=== PATIENT | male | born 1965 | race Caucasian/White ===

== ENCOUNTER 2021-04-06 01:42 | Day surgery (SDC) | payer BC, SELFPAY ==
[2021-03-20 14:37] VITALS: BMI 23.7
[2021-04-06 08:30] VITALS: BP 119/84; PULSE 70; RESP 16; TEMP 36.4; O2SAT 99
[2021-04-06] MEDS: LACTATED RINGERS 1,000 ML 150 ML IV CONT (08:41)
--- NOTE | 2021-04-06 09:36 | P.PNAN_ITS ---
Anes - Initial Pre Proc Eval Procedure: Operation Date: 04/06/21 10:00 Proposed Procedures p Screening Colonoscopy - Raman Solano MD Date/Time: 04/06/21 09:36 Surgeon: Raman Solano MD Pre Op Diagnosis: neoplasm screening Patient Data Age: 55 Gender: M Height: 1.78 m Weight: 75 kg Last Vital Signs Temp 97.5 F L 04/06/21 08:30 Pulse 70 04/06/21 08:30 Resp 16 04/06/21 08:30 BP 119/84 04/06/21 08:30 Pulse Ox 99 04/06/21 08:30 Allergies Allergy/AdvReac Type Severity Reaction Status Date / Time No Known Allergies Allergy Verified 03/20/21 14:35 Home Medications Medication Instructions Recorded Confirmed Type testosterone 50 mg/5 gram (1 %) 50 mg TRANSDERM DAILY #150 g 01/22/21 03/20/21 Rx transdermal gel Patient hx anesthesia problems: none Family hx anesthesia problems: none Results Review: All pre-operative results and documents have been reviewed as part of the pre-operative evaluation. [facility] Past Medical History Medical History (Updated 01/22/21 @ 11:29 by Tigre Jim MD) Chronic back pain Low testosterone Screen for colon cancer Screening for lipid disorders Screening for prostate cancer Family History Family History Mother Hypertension Family history of elevated blood lipids Cerebrovascular accident Social History Social History Smoking status: Never smoker Alcohol intake: current Alcohol use details: rare alcohol use maybe once monthly Substance use: never Substance use type: does not use Living arrangements: with family Spiritual care concerns: No Anes - Eval Final PreProcedure Day of Procedure 04/06/21 09:36 Patient weight: normal Heart: regular rate and rhythm Lungs: clear to auscultation Airway: Mallampati scale class II Neurological: alert and oriented Last oral intake: >/= 8 hours ASA classification: I Emergent: no Anesthetic plan: proceed Anesthesia type and monitoring: general GIVS and standard monitoring Results Review: All pre-operative results and documents have been reviewed as part of the pre-operative evaluation. Informed Consent: The patient's anesthetic plan and its attendant risks and benefits were discussed with the patient/family/POA. Questions were solicited and answers provided to the satisfaction of the patient/family/POA.
--- NOTE | 2021-04-06 09:58 | PM.HPGS ---
History of Present Illness History of Present Illness Consent: Risks, benefits, and alternatives have been discussed and questions answered. Patient agrees to proceed with procedure. Chief complaint: neoplasm screening Narrative: Og Campbell is a 55 year old male here for first screening colonoscopy Review of Systems Constitutional: Constitutional: Denies headache(s) and Denies weakness Eyes: Eyes: Denies blurry vision ENT: Reports Normal hearing present, Denies headache(s) and Denies neck pain Cardiovascular: Cardiovascular: Denies chest pain and Denies dyspnea Respiratory: Respiratory: Denies dyspnea Gastrointestinal: Gastrointestinal: Reports no additional gastrointestinal complaints Genitourinary: Genitourinary: Denies dysuria Musculoskeletal: Musculoskeletal: Denies neck pain Integumentary/Breasts: Skin/Breast: Denies dry skin Neurologic: Reports Normal hearing present, Denies headache(s) and Denies weakness Psychiatric: Psychiatric: Denies anxiety Endocrine: Endocrine: Denies change in body appearance Hematologic/Lymphatic: Hematologic/Lymphatic: Denies easy bleeding Allergic/Immunologic: Allergic/Immunologic: Denies urticaria PMFSH Past Medical History Medical History (Updated 01/22/21 @ 11:29 by Tigre Jim MD) Chronic back pain Low testosterone Screen for colon cancer Screening for lipid disorders Screening for prostate cancer Family History Family History Mother Hypertension Family history of elevated blood lipids Cerebrovascular accident Social History Social History Smoking status: Never smoker Alcohol intake: current Alcohol use details: rare alcohol use maybe once monthly Substance use: never Substance use type: does not use Living arrangements: with family Spiritual care concerns: No Meds Home Medications and Allergies Home Medications Medication Instructions Recorded Confirmed Type testosterone 50 mg/5 gram (1 %) 50 mg TRANSDERM DAILY #150 g 01/22/21 03/20/21 Rx transdermal gel Allergies Allergy/AdvReac Type Severity Reaction Status Date / Time No Known Allergies Allergy Verified 03/20/21 14:35 Vital Signs Vital Signs - 24 hr 04/06/21 08:30 Temperature 97.5 F L Pulse Rate 70 Respiratory Rate 16 Blood Pressure 119/84 Pulse Oximetry 99 Exam Const: General: comfortable and no acute distress HENMT: General nose exam: Normal nares present Eyes: General: appearance normal, both eyes and all related structures Neck: Neck: no JVD Resp: Auscultation: clear to auscultation bilaterally Cardio: Rate: regular rate Rhythm: regular rhythm GI: Inspection: non-distended GI Palp: Yes Soft to palpation Skin: General skin exam: normal color Neuro: General: gait normal Speech: normal speech Extrem: General: normal to inspection Psych: Mental Status: mental status grossly normal Assessment and Plan Assessment and plan (1) Screen for colon cancer: Code(s): Z12.11 - Encounter for screening for malignant neoplasm of colon Status: Acute Assessment and Plan: colonoscopy
[2021-04-06 10:24] VITALS: BP 99/68; PULSE 68; RESP 16; O2SAT 99
[2021-04-06 10:34] VITALS: BP 120/84; PULSE 63; RESP 19; O2SAT 100
[2021-04-06 10:44] VITALS: BP 138/83; PULSE 60; RESP 19; O2SAT 100
== END 2021-04-06 10:55 | disposition home or self-care (01) ==
PROVIDERS: PCP Family Medicine; Visit Provider Internal Medicine Gastroenterology
PROC: 0DJD8ZZ Inspection of Lower Intestinal Tract, Via Natural or Artificial Opening Endoscopic (ICD-10-PCS; CPT 45378; principal; 2021-04-06 10:00)
DX: Z12.11 Encounter for screening for malignant neoplasm of colon (principal); K64.8 Other hemorrhoids; E29.1 Testicular hypofunction
CPT/HCPCS: 45378; J2704; J7120